=== PATIENT | female | born 1940 | race Caucasian/White ===

== ENCOUNTER → 2017-03-25 | Outpatient (CLI) | payer MEDICARE, BC | END | disposition home or self-care (01) | LOC: RAD 11:37 | DX: Z01.818 Encounter for other preprocedural examination (principal); I70.0 Atherosclerosis of aorta; Z98.890 Other specified postprocedural states | CPT/HCPCS: 71045-TC ==

== ENCOUNTER 2017-03-30 05:39 | Inpatient (IN) | payer MEDICARE, BC ==
[~2017-03-30] VITALS: Ht 154.9 cm; Wt 90.5 kg
--- NOTE | 2017-03-30 06:13 | NUR ---
RN NOTES PATIENT CAME FROM HOME IN STABLE CONDITION, ALERT AND ORIENTED X4. FAMILY PRESENT AT BEDSIDE. VS STABLE. NO PAIN OR DISCOMFORT NOTED. RESPIRATIONS EVEN AND UNLABORED. NO SOB NOTED. IV ACCESS ON RIGHT HAND 18 G PATENT AND INTACT. PATIENT IS GOING FOR SURGERY. CONSENT SIGNED. PRE OP TEACHING PROVIDED. WILL CONTINUE TO MONITOR.
[2017-03-30 06:26] VITALS: BP 140/77
[2017-03-30 06:44] VITALS: BP 140/77
--- NOTE | 2017-03-30 07:30 | NUR ---
RN CLOSING NOTE PATIENT IN BED, ALERT AND ORIENTED X 4, IN NO ACUTE DISTRESS, NO C/O PAIN, NO SOB, BREATHING EVEN AND UNLBORED. ALL PATIENT'S NEEDS ATTENDED TO AT THIS TIME. PATIENT'S FAMILY AT BEDSIDE. BED PLACED IN LOW POSITION AND LOCKED IN PLACE. REPORT GIVEN TO AM SHIFT NURSE FOR CONTINUITY OF CARE.
--- NOTE | 2017-03-30 07:35 | NUR ---
RN OPEN NOTES RECEIVED REPORT FROM BUILDING GUARD DEPUTY SHERIFF NURSE. PATIENT IS READY FOR SURGERY, CONSENT SIGNED. WILL FOLLOW UP WITH SURGERY FOR TIME. WILL CONTINUE TO ASSESS AND MONITOR PATIENT
[2017-03-30 08:00] VITALS: BP 143/72
--- NOTE | 2017-03-30 08:40 | NUR ---
PATIENT IS OFF THE FLOOR FOR SURGERY
[2017-03-30] MEDS ORDERED: FENTANYL PF 100MCG/2ML AMPUL ONE (09:00)
[2017-03-30] MEDS ORDERED: MIDAZOLAM HCL 2 MG/2ML VIAL ONE (09:00)
[2017-03-30] MEDS ORDERED: TRANEXAMIC ACID 3,000 MG in SODIUM CHLORIDE IRRIG SOLUTION 70 ML IR ONE (10:30)
--- NOTE | 2017-03-30 11:45 | NUR ---
PATIENT ARRIVED TO UNIT FROM SURGERY
[2017-03-30] MEDS ORDERED: ZOLPIDEM TARTRATE 5 MG TABLET PO PRN ×2 (12:30→13:00)
[2017-03-30] MEDS ORDERED: MAGNESIUM HYDROXIDE 30 ML UDC PO PRN (12:30)
[2017-03-30] MEDS ORDERED: MAG HYDROX/AL HYDROX/SIMETH 30 ML UDC PO PRN (12:30)
[2017-03-30] MEDS ORDERED: HYDROCODONE/APAP 5/325MG 1 EACH TABLET PO PRN ×2 (12:30→13:00)
[2017-03-30] MEDS ORDERED: Z GUARD REMEDY 2 OZ OINT TP PRN (12:30)
[2017-03-30] MEDS ORDERED: ONDANSETRON HCL/PF 4 MG/2 ML VIAL IVP PRN (12:30)
[2017-03-30] MEDS ORDERED: hydrALAZINE HCL 25 MG TABLET PO PRN ×2 (12:30→18:30)
[2017-03-30] MEDS ORDERED: ONDANSETRON HCL/PF 4 MG/2 ML VIAL IV PRN (13:00)
[2017-03-30] MEDS ORDERED: SENNOSIDES 8.6 MG TABLET PO PRN (13:00)
[2017-03-30] MEDS ORDERED: BISACODYL SUPP (10 MG) 10 MG/SUPP.RECT SUPP.RECT RC PRN (13:00)
[2017-03-30] MEDS ORDERED: OLME20TA21 PO (13:09)
[2017-03-30] MEDS ORDERED: ATOR20TA PO (13:09)
[2017-03-30] MEDS ORDERED: ASPI-1152 PO (13:09)
[2017-03-30] MEDS ORDERED: METF850T2 PO (13:09)
[2017-03-30] MEDS: IV LR 1000 ML 1,000 ML IV PRN (13:41)
[2017-03-30 13:51] LABS: CALCIUM, SERUM 9.6 mg/dL (8.5-10.1); CARBON DIOXIDE 25 mmol/L (21-32); CHLORIDE 105 mmol/L (98-107); CREATININE 0.9 mg/dL (0.6-1.3); GLUCOSE 121 mg/dL (74-106); MAGNESIUM 1.4 mg/dL (1.8-2.4); POTASSIUM 4.9 mmol/L (3.5-5.1); SODIUM SERUM 140 mmol/L (136-145); UREA NITROGEN, BLOOD 29 mg/dL (7-18)
[2017-03-30 14:04] LABS: THYROID STIMULATING HORMONE 2.229 uIU/mL (0.358-3.74)
[2017-03-30 14:49] LABS: IRON, SERUM 57 ug/dl (50-175); TOTAL IRON BINDING CAPACITY 325 ug/dl (250-450)
[2017-03-30 16:00] VITALS: BP 126/72
[2017-03-30] MEDS ORDERED: ASPIRIN 325 MG TABLET PO SCH (16:00)
[2017-03-30] MEDS: HYDROMORPHONE 1 MG/1 ML DISP.SYRIN IV PRN (16:36)
[2017-03-30] MEDS ORDERED: DOCUSATE SODIUM 250 MG CAPSULE PO SCH (17:00)
[2017-03-30] MEDS: ANCEF 1 GM/50 ML D5W IV SCH ×4 (17:18→23:55)
[2017-03-30] MEDS ORDERED: DEXTROSE 50%-WATER 50 ML DISP.SYRIN IV PRN (18:30)
[2017-03-30] MEDS ORDERED: CYANOCOBALAMIN 1,000 MCG/ML VIAL IM ONE (18:30)
--- NOTE | 2017-03-30 18:33 | NUR ---
RN CLOSING NOTES: PATIENT IN BED, ALERT AND ORIENTED TO NAME, PLACE AND TIME. BREATHING EVEN AND UNLABORED. APPEARS CALM AND IN NO DISTRESS. IV INTACT AND PATENT. DUE MEDS GIVEN. PROVIDED FOR COMFORT AND SAFETY. BED IN LOWEST AND LOCKED POSITION, SIDE RAILS UP X 2. CALL LIGHT WITHIN REACH FOR SAFETY. WILL ENDORSE TO DIRECTOR STATISTICAL PROGRAMMING RN FOR ARVIN.
[2017-03-30] MEDS: Magnesium 1GM/D5W 100ML PREMIX 100 ML IV SCH ×3 (19:05→23:20)
--- NOTE | 2017-03-30 19:30 | NUR ---
RN OPENING NOTES RECEIVED REPORT FROM DAYSHIFT TD STEVENSON. FOUND Pt AWAKE, RESTING IN BED, WATCHING TV. NO S/S OF ACUTE DISTRESS OR SOB NOTED. Pt IS A/OX4, VERBAL, ABLE TO MAKE NEEDS KNOWN. IV ACCESS ON LHAND #20G, IVF LR @100ML/HR, INFUSING WELL. HURLEY CATHETER IN PLACE. SAFETY MEASURES IN PLACE. BED LOW, LOCKED, HOB ELEVATED, SIDE RAILS UP, CALL LIGHT AND BED SIDE TABLE WITHIN REACH. WILL CONTINUE TO MONITOR Pt THROUGHOUT THE NIGHT FOR SAFETY.
[2017-03-30 20:00] VITALS: BP 137/84
[2017-03-30] MEDS ORDERED: oxyCODONE IR immediate release 5 MG PO PRN (21:30)
[2017-03-30] MEDS ORDERED: diphenhydrAMINE HCL 25 MG CAPSULE PO PRN (21:30)
--- NOTE | 2017-03-30 22:05 | NUR ---
RN NOTES HS ACCUCHECK BG 167. ADMINISTERED 3UN OF INSULIN PER SLIDING SCALE.
[2017-03-30] MEDS: ATORVASTATIN 10 MG TABLET PO SCH (23:48)
[2017-03-30] MEDS: BLOOD SUGAR DIAGNOSTIC 1 EACH STRIP IN SCH (23:55)
[2017-03-30] MEDS: PANTOPRAZOLE 40 MG TABLET.DR PO SCH (23:55)
[2017-03-31] MEDS: INSULIN REGULAR, HUMAN 100 UNIT/ML 3 ML VIAL SQ PRN ×4 (00:11→21:21)
[2017-03-31] MEDS: IV LR 1000 ML 1,000 ML IV PRN (04:49)
[2017-03-31] MEDS: HYDROMORPHONE 1 MG/1 ML DISP.SYRIN IV PRN ×2 (05:52→13:49)
[2017-03-31] MEDS: BLOOD SUGAR DIAGNOSTIC 1 EACH STRIP IN SCH ×4 (06:22→21:09)
--- NOTE | 2017-03-31 06:36 | NUR ---
RN NOTES AC ACCUCHECK BG 151. ADMINISTERED 2UN OF INSULIN PER SLIDING SCALE. PROVIDED OJ AT THE BEDSIDE.
--- NOTE | 2017-03-31 06:40 | NUR ---
RN CLOSING NOTES NO SIGNIFICANT CHANGES IN Pt's CONDITION DURING THE SHIFT. Pt REMAINS STABLE AT THIS TIME. NO S/S OF ACUTE DISTRESS OR SOB NOTED DURING THE NIGHT. ALL NEEDS MET AND ATTENDED TO. SAFETY MEASURES IN PLACE. WILL ENDORSE TO DAYSHIFT RN. FC OUTPUT: 1300CC.
[2017-03-31 06:53] LABS: BASOPHILS % (AUTO) 0.1 % (0.0-2.0); EOSINOPHILS % (AUTO) 0.2 % (0.0-6.0); HEMATOCRIT 32 % (33-45); HEMOGLOBIN 10.9 g/dL (11.5-14.8); LYMPHOCYTES # (AUTO) 1.4 /CMM (0.8-4.8); LYMPHOCYTES % (AUTO) 12.5 % (20.0-44.0); MEAN CORPUSCULAR HEMOGLOBIN 32 PG (26.0-33.0); MEAN CORPUSCULAR HGB CONC 35 g/dl (31.0-36.0); MEAN CORPUSCULAR VOLUME 92 fL (82-100); MONOCYTES % (AUTO) 8.9 % (2.0-12.0); NEUTROPHILS # (AUTO) 8.9 /CMM (1.8-8.9); NEUTROPHILS % (AUTO) 78.3 % (43.0-81.0); PLATELET COUNT (AUTO) 282 /CMM (150-450); RDW COEFFICIENT OF VARIATION 13.7 (11.5-15.0); RED BLOOD CELL COUNT(AUTO) 3.44 MIL/uL (4.0-5.2); WHITE BLOOD COUNT (AUTO) 11.4 K/uL (4.3-11.0)
[2017-03-31 07:17] LABS: CALCIUM, SERUM 8.9 mg/dL (8.5-10.1); CARBON DIOXIDE 26 mmol/L (21-32); CHLORIDE 103 mmol/L (98-107); CREATININE 0.8 mg/dL (0.6-1.3); GLUCOSE 141 mg/dL (74-106); MAGNESIUM 2.2 mg/dL (1.8-2.4); PHOSPHORUS 3.4 mg/dL (2.5-4.9); POTASSIUM 4.3 mmol/L (3.5-5.1); SODIUM SERUM 137 mmol/L (136-145); UREA NITROGEN, BLOOD 20 mg/dL (7-18)
--- NOTE | 2017-03-31 07:21 | NUR ---
MS/RN OPENING NOTE PATIENT IN BED IN STABLE CONDITION. A/O X 4. NO SIGNS OF ACUTE DISTRESS. NO COMPLAIN OF PAIN OR DISCOMFORT. ALL NEEDS ATTENDED TO. CALL LIGHT WITHIN REACH. WILL CONTINUE TO MONITOR TO ENSURE SAFETY.
[2017-03-31 08:00] VITALS: BP 123/56
[2017-03-31] MEDS: DOCUSATE SODIUM 100 MG CAPSULE PO SCH ×2 (08:36→17:06)
[2017-03-31] MEDS: ASPIRIN 81 MG TAB.CHEW PO SCH (08:36)
[2017-03-31] MEDS: SENNOSIDES 8.6 MG TABLET PO SCH ×2 (08:36→17:06)
[2017-03-31] MEDS: ENOXAPARIN SODIUM 40 MG/0.4 ML DISP.SYRIN SQ SCH (08:37)
[2017-03-31] MEDS ORDERED: CYANOCOBALAMIN 500 MCG TABLET PO SCH (09:00)
[2017-03-31 12:05] LABS: THYROID STIMULATING HORMONE 2.537 uIU/mL (0.358-3.74)
[2017-03-31] MEDS ORDERED: CYANOCOBALAMIN 1,000 MCG/ML VIAL SQ ONE (13:00)
[2017-03-31 13:37] LABS: BILIRUBIN,TOTAL 0.4 mg/dL (0.2-1.0); TOTAL PROTEIN, SERUM 6.9 g/dL (6.4-8.2)
[2017-03-31 13:44] LABS: ALBUMIN 3.2 g/dL (3.4-5.0)
[2017-03-31 13:56] LABS: BILIRUBIN,DIRECT 0.1 mg/dL (0.0-0.2)
--- NOTE | 2017-03-31 14:00 | NUR ---
MS/RN SEEN BY DELON OLVERA PATIENT SEEN BY MAY MAZARIEGOS FOR ORTHOPEDICS WITH NO ORDERS AT THIS TIME PER DELON OLVERA WILL CHANGE DRESSING FOR IN RIGHT KNEE INCISION IN AM.
[2017-03-31] MEDS: IV NS 0.9% 1,000 ML IV PRN ×2 (15:13→23:09)
[2017-03-31] MEDS: ACETAMINOPHEN 325 MG TABLET PO PRN (18:52)
--- NOTE | 2017-03-31 18:55 | NUR ---
MS/RN CLOSING NOTE PATIENT IN BED IN STABLE CONDITION. A/O X 4. NO SIGNS OF ACUTE DISTRESS. NOTED WITH TEMP. OF 100.2, PRN ACETAMINOPHEN 650MG GIVEN, TOLERATED WELL. ALL NEEDS ATTENDED TO. WILL ENDORSE TO NEXT SHIFT FOR CONTINUITY OF CARE. CALL LIGHT IN REACH.
--- NOTE | 2017-03-31 19:00 | NUR ---
MS RN OPENING NOTES: RECEIVED PT IN BED AND IS AWAKE. PT ON ROOM AIR AND TOLERATING WELL. PT ON CPM MACHINE AT THIS TIME. PT A/OX4. NOTED HURLEY CATH AND IS ATTACHED TO DRAINAGE BAG WITH YELLOW URINE DRAINING. PT HAS IV ON L WRIST #20G AND IS PATENT AND INTACT. PT CURRENTLY ON NS AT 125ML/HR. L KNEE IN LEWIS BANDAGE. CALL LIGHT WITHIN PT'S REACH. BED KEPT IN LOW, LOCKED POSITION, AND SIDE RAILS X 2 UP. WILL CONTINUE TO MONITOR PT.
[2017-03-31 20:00] VITALS: BP 155/72
[2017-03-31] MEDS: PANTOPRAZOLE 40 MG TABLET.DR PO SCH (21:09)
[2017-03-31] MEDS: ATORVASTATIN 10 MG TABLET PO SCH (21:09)
--- NOTE | 2017-03-31 21:21 | NUR ---
MS RN NOTES: BLOOD SUGAR IS 158. 2 UNITS OF INSULIN WAS ADMINISTERED. WILL CONTINUE TO MONITOR PT.
--- NOTE | 2017-04-01 05:48 | NUR ---
MS RN NOTES: GAVE PT INCENTIVE SPIROMETER. ENCOURAGED HER TO USE WHILE AWAKE.
[2017-04-01] MEDS: BLOOD SUGAR DIAGNOSTIC 1 EACH STRIP IN SCH ×4 (06:06→21:01)
[2017-04-01] MEDS: IV NS 0.9% 1,000 ML IV PRN (06:06)
[2017-04-01] MEDS: CYANOCOBALAMIN 1,000 MCG/ML VIAL IM SCH (06:23)
[2017-04-01] MEDS: INSULIN REGULAR, HUMAN 100 UNIT/ML 3 ML VIAL SQ PRN ×4 (06:24→21:06)
[2017-04-01] MEDS ORDERED: SOD FERRIC GLUC 125 MG in IV NS 0.9% 100 ML IV SCH ×2 (06:30→14:00)
--- NOTE | 2017-04-01 06:54 | NUR ---
MS RN NOTES: BLOOD SUGAR THIS AM WAS 142. 2 UNITS OF INSULIN WAS ADMINISTERED. WILL CONTINUE TO MONITOR PT.
[2017-04-01 07:00] LABS: BASOPHILS % (AUTO) 0.1 % (0.0-2.0); EOSINOPHILS % (AUTO) 0.4 % (0.0-6.0); HEMATOCRIT 30 % (33-45); LYMPHOCYTES # (AUTO) 0.8 /CMM (0.8-4.8); LYMPHOCYTES % (AUTO) 10.8 % (20.0-44.0); MEAN CORPUSCULAR HEMOGLOBIN 31 PG (26.0-33.0); MEAN CORPUSCULAR HGB CONC 34 g/dl (31.0-36.0); MEAN CORPUSCULAR VOLUME 92 fL (82-100); MONOCYTES % (AUTO) 12.6 % (2.0-12.0); NEUTROPHILS # (AUTO) 5.8 /CMM (1.8-8.9); NEUTROPHILS % (AUTO) 76.1 % (43.0-81.0); PLATELET COUNT (AUTO) 203 /CMM (150-450); RDW COEFFICIENT OF VARIATION 14.1 (11.5-15.0); RED BLOOD CELL COUNT(AUTO) 3.22 MIL/uL (4.0-5.2); WHITE BLOOD COUNT (AUTO) 7.6 K/uL (4.3-11.0)
--- NOTE | 2017-04-01 07:01 | NUR ---
MS RN CLOSING NOTES: ALL NEEDS WERE ATTENDED AND ANTICIPATED FOR. PT IS SITTING UP IN BED AT THIS TIME. PT HAS IV AND IS BEING INFUSED WITH NS AT 125ML/HR. PT HAS HURLEY CATH AND IS ATTACHED TO DRAINAGE BAG WITH YELLOW URINE DRAINING. OUTPUT FOR SHIFT WAS 1150ML. PT NO COMPLAINING OF ANY PAIN. PT GIVEN INCENTIVE SPIROMETER AND ENCOURAGED TO USE WHILE AWAKE. NOTED LEWIS BANDAGE ON L KNEE. CALL LIGHT WITHIN PT'S REACH. BED KEPT IN LOW, LOCKED POSITION, AND SIDE RAILS X 2UP. WILL ENDORSE TO AM NURSE FOR ARVIN.
--- NOTE | 2017-04-01 07:05 | NUR ---
MS RN OPENING NOTES RECEIVED PT FROM NIGHTSHIFT NURSE IN STABLE CONDITION. PT IS A/O X4. NO SOB OR SIGNS OF DISTRESS NOTED. BREATHING IS EVEN AND UNLABORED. PT DENIES ANY PAIN AT THIS TIME. HURLEY CATHETER NOTED TO BE DRAINING CLEAR YELLOW URINE. SURGICAL SITE NOTED, DRESSING NOTED TO BE CLEAN, DRY, AND INTACT. IV NOTED TO LEFT WRIST 20G INFUSING NS @ 125ML/HR. PT IS TOLERATING INFUSION WELL. NO REDNESS OR SIGNS OF DISTRESS NOTED. BED IN LOW LOCKED POSITION, SIDE RAILS UP X2, CALL LIGHT WITHIN REACH. WILL CONTINUE TO MONITOR
[2017-04-01 07:09] LABS: ALANINE AMINOTRANSFERASE 18 U/L (12-78); ALBUMIN 2.7 g/dL (3.4-5.0); ALKALINE PHOSPHATASE 52 U/L (46-116); ASPARTATE AMINOTRANSFERASE 22 U/L (15-37); BILIRUBIN,TOTAL 0.4 mg/dL (0.2-1.0); CALCIUM, SERUM 8.6 mg/dL (8.5-10.1); CARBON DIOXIDE 26 mmol/L (21-32); CHLORIDE 103 mmol/L (98-107); CREATININE 0.8 mg/dL (0.6-1.3); GLUCOSE 146 mg/dL (74-106); MAGNESIUM 1.5 mg/dL (1.8-2.4); PHOSPHORUS 2.8 mg/dL (2.5-4.9); POTASSIUM 4.2 mmol/L (3.5-5.1); SODIUM SERUM 136 mmol/L (136-145); TOTAL PROTEIN, SERUM 6.3 g/dL (6.4-8.2); UREA NITROGEN, BLOOD 15 mg/dL (7-18)
[2017-04-01 08:00] VITALS: BP 162/82
[2017-04-01] MEDS: DOCUSATE SODIUM 100 MG CAPSULE PO SCH ×2 (08:51→17:09)
[2017-04-01] MEDS: ASPIRIN 81 MG TAB.CHEW PO SCH (08:51)
[2017-04-01] MEDS: SENNOSIDES 8.6 MG TABLET PO SCH ×2 (08:51→17:09)
[2017-04-01] MEDS: ACETAMINOPHEN 325 MG TABLET PO PRN ×2 (08:52→21:02)
[2017-04-01] MEDS: ENOXAPARIN SODIUM 40 MG/0.4 ML DISP.SYRIN SQ SCH (08:54)
--- NOTE | 2017-04-01 10:15 | NUR ---
MS RN NOTES PT HAD A TEMP OF 100.6. ACETAMINOPHEN WAS ADMINISTERED AND COOLING MEASURES PROVIDED. TEMPERATURE WAS RECHECKED AND IS NOW 98.6. DR. CALLEJAS MADE AWARE AND GAVE ORDERS TO D/C MEI AND COLLECT UA SAMPLE. WILL CARRY OUT ORDERS
[2017-04-01] MEDS ORDERED: RIVA10TA PO (10:17)
[2017-04-01] MEDS ORDERED: VIT1TABL5 PO (10:17)
[2017-04-01] MEDS ORDERED: DOCU-141 PO (10:17)
[2017-04-01] MEDS ORDERED: BISA10SU8 RC (10:17)
[2017-04-01] MEDS: HYDROMORPHONE INJ 0.5 MG/0.5 ML SYRINGE IV PRN ×2 (10:40→14:19)
[2017-04-01] MEDS: Magnesium 1GM/D5W 100ML PREMIX 100 ML IV SCH ×3 (10:40→13:02)
[2017-04-01 15:12] LABS: APPEARANCE,URINE CLEAR (CLEAR); BILIRUBIN,URINE NEGATIVE (NEGATIVE); BLOOD, URINE 1+ Ery/uL (NEGATIVE); COLOR,URINE YELLOW (YELLOW); KETONES,URINE NEGATIVE (NEGATIVE); LEUKOCYTE ESTERASE ,URINE NEGATIVE (NEGATIVE); NITRITE, URINE NEGATIVE (NEGATIVE); PH,URINE 5.5 (5.0-8.0); PROTEIN,URINE NEGATIVE (NEGATIVE); UGLUCOSE NEGATIVE (NEGATIVE); UROBILINOGEN,URINE 0.2 EU/dL (0.2)
[2017-04-01 15:35] LABS: BACTERIA,URINE Rare /HPF (None Seen); RBC,URINE 0-2 /HPF (0-2); SQUAMOUS EPITHELIAL CELL,UR Few /HPF (None Seen); WBC,URINE 0-2 /HPF (0-3)
[2017-04-01 16:00] VITALS: BP 132/67
[2017-04-01] MEDS: ANASTROZOLE 1 MG TABLET PO SCH (17:09)
--- NOTE | 2017-04-01 18:39 | NUR ---
MS RN CLOSING NOTES PT REMAINS IN STABLE CONDITION. ALL NEEDS MET DURING SHIFT AND ORDERS CARRIED OUT ACCORDINGLY. ALL DUE MEDS GIVEN. DRESSING CHANGE COMPLETED ORDERED. WOUND AND SKIN CARE RENDERED, HURLEY CATHETER REMOVED PER MD ORDER AND PER PROTOCOL. PT ABLE TO VOID POST HURLEY REMOVAL. IV REMAINS PATENT AND INTACT. ALL SAFETY MEASURES REMAIN IN PLACE. WILL ENDORSE TO NIGHTSHIFT NURSE FOR ARVIN
--- NOTE | 2017-04-01 19:25 | NUR ---
MS RN OPENING NOTES: RECEIVED PT IN BED AND IS ASLEEP. PT EASILY AROUSABLE. PT A/OX4. PT ON ROOM AIR AND TOLERATING WELL. IN SEMI-DE LA CRUZ'S POSITION. PT HAS IV ON L WRIST #20G AND IS PATENT AND INTACT. CURRENTLY S/L. CALL LIGHT WITHIN PT'S REACH. BED KEPT IN LOW, LOCKED POSITION, AND SIDE RAILS X 2 UP. INCENTIVE SPIROMETER AT BEDSIDE AND ENCOURAGED TO USE WHILE AWAKE. WILL CONTINUE TO MONITOR PT.
[2017-04-01 20:00] VITALS: BP 159/70
[2017-04-01] MEDS: PANTOPRAZOLE 40 MG TABLET.DR PO SCH (21:01)
[2017-04-01] MEDS: ATORVASTATIN 10 MG TABLET PO SCH (21:01)
--- NOTE | 2017-04-01 22:10 | NUR ---
MS RN NOTES: BLOOD SUGAR WAS 168. 3 UNITS OF INSULIN WAS ADMINISTERED. WILL CONTINUE TO MONITOR PT.
[2017-04-02] MEDS: BLOOD SUGAR DIAGNOSTIC 1 EACH STRIP IN SCH (06:01)
[2017-04-02] MEDS: CYANOCOBALAMIN 1,000 MCG/ML VIAL IM SCH (06:01)
[2017-04-02] MEDS: INSULIN REGULAR, HUMAN 100 UNIT/ML 3 ML VIAL SQ PRN (06:06)
--- NOTE | 2017-04-02 06:07 | NUR ---
MS RN NOTES: BLOOD SUGAR WAS 126. NO INSULIN IS TO BE ADMINISTERED AT THIS TIME. WILL CONTINUE TO MONITOR.
--- NOTE | 2017-04-02 07:30 | NUR ---
RN OPENING NOTES RECEIVED PT. PT IS STABLE AND SLEEPING IN BED. PT IS A/OX4. NO S/S OF SOB OR RESP DISTRESS. PT HAS C/O PAIN AT LEFT KNEE, WILL ADDRESS PHARMACOLOGICALLY. PT IS SCHEDULED TO BE D/C TODAY TO [facility]. IV ACCESS LOCATED ON LEFT WRIST ON 20G CURRENTLY SL. SAFETY MEASURES IN PLACE, CALL LIGHT WITHIN REACH. WILL CONTINUE TO MONITOR.
--- NOTE | 2017-04-02 07:33 | NUR ---
MS RN CLOSING NOTES: ALL NEEDS WERE ATTENDED AND ANTICIPATED FOR. PT SITTING UP IN BED COMFORTABLY, WATCHING TELEVISION. PT A/OX4. PT ON ROOM AIR AND TOLERATING WELL. PT HAS IV ON L WRIST #20G AND IS PATENT AND INTACT. CURRENTLY S/L. CALL LIGHT WITHIN PT'S REACH. BED KEPT IN LOW, LOCKED POSITION, AND SIDE RAILS X 2 UP. INCENTIVE SPIROMETER AT BEDSIDE AND ENCOURAGED TO USE WHILE AWAKE. INSTRUCTED PT TO USE CALL LIGHT FOR ASSISTANCE. ENDORSED TO AM NURSE FOR ARVIN.
[2017-04-02 08:00] VITALS: BP 171/83
[2017-04-02] MEDS: HYDROMORPHONE INJ 0.5 MG/0.5 ML SYRINGE IV PRN (08:03)
[2017-04-02] MEDS: SENNOSIDES 8.6 MG TABLET PO SCH (08:03)
[2017-04-02] MEDS: DOCUSATE SODIUM 100 MG CAPSULE PO SCH (08:03)
[2017-04-02] MEDS: ASPIRIN 81 MG TAB.CHEW PO SCH (08:03)
[2017-04-02] MEDS: ENOXAPARIN SODIUM 40 MG/0.4 ML DISP.SYRIN SQ SCH (08:11)
[2017-04-02] MEDS: ANASTROZOLE 1 MG TABLET PO SCH (09:30)
--- NOTE | 2017-04-02 13:45 | NUR ---
DISCHARGE NOTE PT DISCHARGED TO [facility]. VSS, NO S/S OF RESP DISTRESS, NO C/O PAIN AT THIS TIME. ALL DISCHARGE INSTRUCTIONS REVIEWED WITH PT. PT VERBALIZES UNDERSTANDING OF EDUCATION. DISCHARGE INSTRUCTIONS AND BELONGINGS LIST SIGNED, COPIED AND PLACED IN CHART. IV ACCESS AND ID REMOVED. REPORT GIVEN TO TD PADILLA AT [facility]. PT LEFT HOSPITAL IN AMBULANCE WITH PARAMEDICS.
[2017-04-03 08:07] LABS: HOMOCYSTEINE, PLASMA 8.1 umol/L (0.0-15.0)
== END 2017-04-02 13:31 | DRG 470 ==
LOC: DS 05:39 → MED 05:41
PROVIDERS: ADMIT Specialist; ATTEND Specialist
PROC: 0SRD0J9 Replacement of Left Knee Joint with Synthetic Substitute, Cemented, Open Approach (ICD-10-PCS; principal; 2017-03-30 11:05)
DX: M17.12 Unilateral primary osteoarthritis, left knee (principal); D63.8 Anemia in other chronic diseases classified elsewhere; E11.9 Type 2 diabetes mellitus without complications; E83.42 Hypomagnesemia; E66.01 Morbid (severe) obesity due to excess calories; E53.8 Deficiency of other specified B group vitamins; E78.5 Hyperlipidemia, unspecified; I10 Essential (primary) hypertension; I25.10 Atherosclerotic heart disease of native coronary artery without angina pectoris; M81.0 Age-related osteoporosis without current pathological fracture; K21.9 Gastro-esophageal reflux disease without esophagitis; H40.9 Unspecified glaucoma; Z95.1 Presence of aortocoronary bypass graft; Z90.13 Acquired absence of bilateral breasts and nipples; Z86.718 Personal history of other venous thrombosis and embolism; Z85.3 Personal history of malignant neoplasm of breast; Z82.49 Family history of ischemic heart disease and other diseases of the circulatory system; Z80.8 Family history of malignant neoplasm of other organs or systems; Z80.3 Family history of malignant neoplasm of breast; Z68.38 Body mass index [BMI] 38.0-38.9, adult; G47.30 Sleep apnea, unspecified
CPT/HCPCS: 36415; 80048-TC; 80053-TC; 80061-TC; 80076-TC; 81000-TC; 82306; 82728-TC; 82746; 82962-TC; 83090; 83540-TC; 83735-TC; 83921; 84100-TC; 84439-TC; 84443-TC; 85025-TC; 85652-TC; 86850-TC; 86921-TC; 87081-TC; 88305-TC; 88311-TC; 97110-TC; 97116-TC; 97530-TC; 97760-TC; A4217; A6253; A6402; J0690; J1170; J1650; J1815; J2250; J2405; J2916; J3010; J3420; J3475; J7030; J7042; J7060; J7120; L1830; Z7610